=== PATIENT | male | born 1955 | race Caucasian/White ===

== ENCOUNTER 2017-11-14 16:37 | Emergency (ER) | payer SELFPAY ==
[~2017-11-14] VITALS: Ht 188 cm; Wt 125.6 kg
[2017-11-14 17:01] VITALS: BP 131/94
== END 2017-11-14 17:49 | disposition left against medical advice (07) ==
LOC: EME 16:37
DX: R39.198 Other difficulties with micturition (principal); Z85.46 Personal history of malignant neoplasm of prostate; Z53.21 Procedure and treatment not carried out due to patient leaving prior to being seen by health care provider